=== PATIENT | male | born 1945 | race Caucasian/White ===

== ENCOUNTER 2018-01-11 08:38 | Day surgery (SDC) | payer MEDICARE, OTHER ==
[~2018-01-11] VITALS: Ht 182.9 cm; Wt 93.2 kg
[2018-01-11] MEDS ORDERED: GLIP5TAB8 PO (08:51)
[2018-01-11] MEDS ORDERED: ISOS30TA3 PO (08:52)
[2018-01-11 08:53] VITALS: BP 132/75; PULSE 107; RESP 20; TEMP 97.6; O2SAT 97
[2018-01-11] MEDS ORDERED: METF500T PO (08:53)
[2018-01-11] MEDS ORDERED: LISI2.5T3 PO (08:53)
[2018-01-11] MEDS ORDERED: ATOR40TA16 PO (08:54)
[2018-01-11] MEDS ORDERED: TAMS0.4C4 PO (08:54)
[2018-01-11] MEDS ORDERED: CHLORHEXIDINE GLUCONATE 2 % 1 PACK (2 CLOTHS) TOPICAL PRN (09:30)
[2018-01-11] MEDS ORDERED: ceFAZolin 2 GM PREMIX 50 ML IV SCH (09:30)
[2018-01-11] MEDS ORDERED: LACTATED RINGER'S 1000 ML IV PRN (09:30)
[2018-01-11] MEDS ORDERED: METOPROLOL TARTRATE 25 MG TAB PO PRN (09:30)
[2018-01-11] MEDS ORDERED: SODIUM CHLORID 0.9% 500 ML IV PRN (09:30)
[2018-01-11] MEDS ORDERED: SODIUM CHLOR 0.9% 1000 ML INJ 1,000 ML IV SCH (09:30)
[2018-01-11] MEDS ORDERED: POVIDONE IODINE 5% (ANTISEPSIS KIT) 4 APPLICATIONS EACH NARE PRN (09:30)
[2018-01-11 10:09] LABS: BICARBONATE 22.9 MEQ/L (21.0-32.0); CALCIUM 8.6 MG/DL (8.5-10.1); CREATININE 1.1 MG/DL (0.60-1.30)
--- NOTE | 2018-01-11 14:39 | PD.RAD ---
Post CT Procedure Prog Note Pre Procedure Diagnosis: (1) Renal mass Post Procedure Diagnosis: (1) Renal mass Procedure Date: Jan 11, 2018 Supervising Radiologist: Yuri Benavides Anesthesia: General Plan of Activity Patient to Unit: PACU Patient Condition: Good See PACS Report for procedural detail/treatment Yuri Benavides MD Jan 11, 2018 14:39
[2018-01-11] MEDS ORDERED: oxyCODONE/ACETAMINOPHEN 5 MG/325 MG TAB PO PRN (15:00)
[2018-01-11] MEDS ORDERED: DO NOT ADM ANY ANTICOAGULANT DRUGS PRN (15:03)
[2018-01-11] MEDS ORDERED: MIDAZOLAM HCL 2 MG/2 ML VIAL ONE (15:11)
[2018-01-11 15:22] LABS: HEMATOCRIT 38.7 % (39.0-51.0); HEMOGLOBIN 13.3 GM/DL (13.0-17.0)
[2018-01-11 15:30] VITALS: BP 115/72; PULSE 75; RESP 20; TEMP 97.5; O2SAT 92
[2018-01-11 15:53] VITALS: BP 107/69; PULSE 74; RESP 18; O2SAT 93
--- NOTE | 2018-01-11 16:14 | EKG ---
Date Performed: 01/11/2018 Time Performed: 09:11:14 PTAGE: 72 years EKG: Sinus rhythm NORMAL ECG NO PREVIOUS TRACING DOCTOR: Abhijeet Damon Interpretating Date/Time 01/11/2018 16:10:10
[2018-01-11 16:23] VITALS: BP 125/81; PULSE 80; RESP 17; O2SAT 97
[2018-01-11 16:53] VITALS: BP 120/76; PULSE 71; RESP 18; O2SAT 93
--- NOTE | 2018-01-11 17:00 | RADRPT ---
EXAM DATE/TIME: 01/11/2018 13:28 [facility] COMPARISON: No previous studies available for comparison. INDICATIONS : 72-year-old male with history of bladder CA and 3 cm exophytic anterior mid pole left renal mass conc erning for renal cell carcinoma. Patient presents for biopsy and ablation. BIOPSY SITE: Left kidney Anesthesia and pain control was provided by the Anesthesia department. Prophylactic antibiotics were administered with appropriate pre-procedure timing. DEVICE(S): 1.) 18 gauge Bard 2.) 17 gauge introcucer MEDICAL HISTORY : Diabetes mellitus type 1. Hypertension. SURGICAL HISTORY : None. ENCOUNTER: Initial ACUITY: 1 day PAIN SCORE: 0/10 LOCATION: Left flank A total of two core specimen(s) were obtained and sent to the laboratory for pathologic evaluation. PROCEDURE: 1. CT guided renal biopsy. Prior to the procedure informed consent was obtained. Any appropriate prior imaging studies were rev iewed. Using automated exposure control and adjustment of the mA and/or kV according to patient size, radiat ion dose was kept as low as reasonably achievable to obtain optimal diagnostic quality images. DICOM format image data is available electronically for review and comparison. The site was prepped in a sterile fashion. Full sterile technique was used, including cap, mask, taye rile gloves and gown and a large sterile sheet. Hand hygiene and 2% chlorhexidine and/or betadine/al cohol prep was utilized per protocol for cutaneous antisepsis. The skin and subcutaneous tissues wer e infiltrated with local anesthetic solution. With CT guidance the previously identified target was localized. Biopsy was performed using the presc ribed needle as above. Adequate hemostasis was obtained with compression at the puncture site. Follow-up CT scan reveals no hemorrhage. The patient tolerated the procedure well and there were no complications. The patient was returned to the Radiology Outpatient Unit in stable condition. CONCLUSION: 1. Uncomplicated CT guided biopsy. 2. This procedure was performed in conjunction with cryoablation. Please see ablation report for eleni Benavides MD on January 11, 2018 at 16:57 Board Certified Radiologist. This report was verified electronically.
--- NOTE | 2018-01-11 17:01 | RADRPT ---
EXAM DATE/TIME: 01/11/2018 13:28 INDICATIONS : 72-year-old male with history of bladder cancer and 3 cm exophytic anterior midpole left renal mass. Patient presents for biopsy and ablation. Anesthesia and pain control was provided by the Anesthesia department. DEVICE(S): 1.) Cryoablation probe 2.4 rt angle MEDICAL HISTORY : Hypertension. Diabetes mellitus type 1. SURGICAL HISTORY : None. ENCOUNTER: Initial ACUITY: 1 day PAIN SCORE: 0/10 LOCATION: Left flank PROCEDURE : 1. CT guided cryoablation. Under sterile conditions and using aseptic technique with CT guidance the mass was localized and sati sfactory approach was taken to access the lesion. Using automated exposure control and adjustment of the mA and/or kV according to patient size, radiation dose was kept as low as reasonably achievable to obtain optimal diagnostic quality images. DICOM format image data is available electronically for review and comparison. [employer] Cryoprobes were employed using percutaneous technique employing the prescribed probes. A freeze-thaw, freeze-thaw technique was employed and serial imaging demonstrated an ice ball encomp assing the entire lesion. Post procedure images demonstrate expected postoperative changes without e vidence of hematoma. CONCLUSION: Uncomplicated cryoablation as above. Yuri Benavides MD on January 11, 2018 at 16:58 Board Certified Radiologist. This report was verified electronically.
[2018-01-11 17:53] VITALS: BP 124/78; PULSE 74; RESP 19; O2SAT 97
[2018-01-11 18:08] LABS: HEMATOCRIT 40.1 % (39.0-51.0); HEMOGLOBIN 13.7 GM/DL (13.0-17.0)
== END 2018-01-11 18:29 | disposition home or self-care (01) ==
LOC: HROP 08:38 → HRIP 08:42 → HROP 18:29
PROVIDERS: ATTEND Urology
DX: N28.89 Other specified disorders of kidney and ureter (principal); I10 Essential (primary) hypertension; E10.9 Type 1 diabetes mellitus without complications; Z79.4 Long term (current) use of insulin; Z85.51 Personal history of malignant neoplasm of bladder
CPT/HCPCS: 50200; 50593; 77012; 77013; 80048; 85014; 85018; 88305; 93005; C2618; J2250; J3010; J7030

== ENCOUNTER 2018-01-19 14:19 | Day surgery (SDC) | payer MEDICARE, OTHER ==
[~2018-01-19 14:19] MED LIST: ATOR40TA16 PO; GLIP5TAB8 PO; ISOS30TA3 PO; LISI2.5T3 PO; METF500T PO; TAMS0.4C4 PO
[2018-01-19 14:34] VITALS: BP 125/83; PULSE 83; RESP 20; TEMP 97.7; O2SAT 98
--- NOTE | 2018-01-19 15:17 | RADRPT ---
EXAM DATE/TIME: 01/19/2018 00:00 [facility] COMPARISON : INDICATIONS : RENAL MASS POST CRYOABLATION OBJECTIVE: Temperature: 97.7 Heart Rate: 83 Blood Pressure: 125/65 Respiratory: 20 Oximetry: 987 HISTORY OF PRESENT ILLNESS: 72-year-old male with history of bladder CA and 3 cm exophytic anterior midpole left renal mass post op day #8 status post biopsy and ablation. He has no complaints and denies any hematuria, flank pain, fevers or chills. ASSESSMENT: Uncomplicated postoperative course following left renal mass cryoablation. Patient is asymptomatic an d has no complaints. PLAN: Followup imaging in approximately 2 months to serve as baseline. TIME SPENT: 15 minutes Yuri Benavides MD on January 19, 2018 at 15:00 Board Certified Radiologist. This report was verified electronically.
== END 2018-01-19 15:51 | disposition home or self-care (01) ==
LOC: HROP 14:19 → HRIP 14:23 → HROP 15:51
PROVIDERS: ATTEND Radiology Diagnostic Radiology
DX: N28.89 Other specified disorders of kidney and ureter (principal)